=== PATIENT | female | born 1995 | race Caucasian/White ===

== ENCOUNTER 2017-10-07 14:15 | Emergency (ER) | payer OTHER ==
--- NOTE | 2017-10-07 14:27 | EDM.PDOC ---
ED HPI GENERAL MEDICAL PROBLEM - General Chief Complaint: General Stated Complaint: HAD HAND Time Seen by Provider: 10/07/17 14:25 Source of Information: Reports: Patient, Old Records, RN, RN Notes Reviewed History Limitations: Reports: No Limitations - History of Present Illness INITIAL COMMENTS - FREE TEXT/NARRATIVE: Patient presents to the ED at [facility] complaining of shoulder swelling, tingling of forearm and finger tips, and weak hand grasp of the right shoulder/ extremity. Patient underwent an ORIF of the right clavicle yesterday by Dr. Pedro Patten. Patient is only 24 hours post op. Patient states she called the Ortho office and told to present to an ER. Patient states her pain is not well controlled either. Otherwise, no other concerns Onset: Today - Related Data Allergies Allergy/AdvReac Type Severity Reaction Status Date / Time No Known Allergies Allergy Verified 03/12/14 08:37 Home Meds: Home Meds ALPRAZolam [ALPRAZolam XR] 3 mg PO DAILY 03/12/14 [History] QUEtiapine [SEROquel] 25 mg PO DAILY 03/12/14 [History] oxyCODONE HCl/Acetaminophen [Oxycodone-Acetaminophen 5-325] 1 tab PO Q6H PRN # 10 tablet 10/07/17 [Rx] ED ROS GENERAL - Review of Systems Review Of Systems: See Below Constitutional: Denies: Fever, Chills, Weakness Respiratory: Denies: Shortness of Breath, Cough Cardiovascular: Denies: Chest Pain, Palpitations Musculoskeletal: Reports: Other (increased right shoulder swelling; weak right hand grasp; tingling of right forearm) Skin: Reports: No Symptoms Neurological: Reports: Tingling. Denies: Dizziness, Headache, Weakness ED EXAM, GENERAL - Physical Exam Exam: See Below Exam Limited By: No Limitations General Appearance: Alert, No Apparent Distress Respiratory/Chest: No Respiratory Distress, Lungs Clear, Normal Breath Sounds Cardiovascular: Normal Peripheral Pulses, Regular Rate, Rhythm Peripheral Pulses: 2+: Radial (L), Radial (R) Extremities: Normal Inspection, Normal Capillary Refill, Limited Range of Motion (due to recent ), Other (able to move fingers ok; some swelling of right hand; ROM not tested ) Neurological: Alert, Oriented Departure - Departure Time of Disposition: 15:02 Disposition: Home, Self-Care 01 Condition: Good Clinical Impression: Post-op pain Right clavicle fracture Qualifiers: Encounter type: initial encounter Clavicle location: shaft Fracture type: closed Fracture alignment: nondisplaced Qualified Code(s): S42.024A - Nondisplaced fracture of shaft of right clavicle, initial encounter for closed fracture - Discharge Information *PRESCRIPTION DRUG MONITORING PROGRAM REVIEWED*: Not Applicable *COPY OF PRESCRIPTION DRUG MONITORING REPORT IN PATIENT RAFI: Not Applicable Prescriptions: oxyCODONE HCl/Acetaminophen [Oxycodone-Acetaminophen 5-325] 1 tab PO Q6H PRN # 10 tablet PRN Reason: Pain (Severe 7-10) Instructions: Pain Relief Preoperatively and Postoperatively, Clavicle Fracture , Pain Medicine Instructions Referrals: Christopher Patten MD [Ordering Only Provider] - Forms: ED Department Discharge Additional Instructions: 1. Stay well hydrated and rest 2. Take new pain medication sparingly, as these can make you very drowsy 3. Continue to follow you post op instructions from Dr. Patten 4. Keep your appointment with Dr. Patten for October 13 5. Your symptoms are a normal progression for this type of surgery 6. If you need additional pain medication, call Dr. Patten. We do not do refills through the ER 7. Call us with any questions/concerns 8. May alternate Tylenol/Advil as needed 9. Recommend stool softeners as pain pills will make you constipated. 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 Patten's office. The patient current symptoms are expected since the patient just had surgery less than 24 hours ago. The patient does have a follow-up appointment on October 13, [address] Patten. The patient is to continue with the discharge instructions that were given to her. Patient is to stay well-hydrated. I will increase the patient to oxycodone/APAP with only a few pills. If she feels she needs additional medication she needs to contact the surgeon's office. No change in medical treatment at this point. The patient is encouraged to stay in contact Dr. Patten's office.
== END 2017-10-07 15:20 | disposition home or self-care (01) ==
LOC: VM.ED 14:15
DX: G89.18 Other acute postprocedural pain (principal); S42.024A Nondisplaced fracture of shaft of right clavicle, initial encounter for closed fracture; Z79.899 Other long term (current) drug therapy; Z96.698 Presence of other orthopedic joint implants; X58.XXXA Exposure to other specified factors, initial encounter
CPT/HCPCS: 99283

== ENCOUNTER 2021-10-26 13:18 | Emergency (ER) | payer OTHER ==
[2021-10-26] MEDS: Ketorolac 30 MG/ML SDV IM ONE (13:57)
[2021-10-26 14:34] LABS: ANION GAP 13.2 mmol/L (5-15)
[2021-10-26] MEDS: HYDROmorphone 1 MG/ML Syringe SUBCUT ONE (14:48)
[2021-10-26] MEDS: methylPREDNISolone Acetate 40 MG/ML SDV IM ONE (15:34)
[2021-10-26] MEDS: Take Home: Acetaminophen/oxyCODONE 325-5 MG, 5 Tab Pack PO ONE (15:34)
== END 2021-10-26 15:44 | disposition home or self-care (01) ==
LOC: VM.ED 13:18
DX: R22.2 Localized swelling, mass and lump, trunk (principal); E87.6 Hypokalemia
CPT/HCPCS: 36415; 71250; 80053; 85025; 96372; 99284; A9270-GY; J1030; J1170; J1885